=== PATIENT | male | born 1950 | race Caucasian/White ===

== ENCOUNTER → 2020-05-25 | Outpatient (CLI) | payer MEDICARE ==
--- NOTE | 2020-05-25 10:25 | XR ---
EXAMINATION TYPE: XR chest 2V DATE OF EXAM: 05/25/2020 COMPARISON: NONE HISTORY: R06.02 TECHNIQUE: Frontal and lateral views of the chest are obtained. FINDINGS: There is no focal air space opacity, pleural effusion, or pneumothorax seen. The cardiac silhouette size is within normal limits. Suspect coronary artery calcifications may be present The o sseous structures are intact, there is thoracic spondylosis. Right hemidiaphragm mildly elevated. IMPRESSION: No acute cardiopulmonary process. Coronary artery disease. Additional findings above.
== END ==
LOC: RADXRMAIN 09:31
PROVIDERS: ATTEND Physician Assistant
DX: I25.10 Atherosclerotic heart disease of native coronary artery without angina pectoris (principal)
CPT/HCPCS: 71046

== ENCOUNTER 2020-05-28 04:28 | Inpatient (IN) | payer MEDICARE ==
[2020-05-28 05:22] LABS: Basophils # (A) 0.1 k/uL (0-0.2); Basophils % (A) 1 %; Eosinophils # (A) 0.2 k/uL (0-0.7); Eosinophils % (A) 1 %; HCT 50.9 % (39.0-53.0); HGB 17.2 gm/dL (13.0-17.5); Lymphocytes # (A) 2.5 k/uL (1.0-4.8); Lymphocytes % (A) 17 %; MCHC 33.7 g/dL (31.0-37.0); Mean Platelet Volume 7.4; Monocytes % (A) 7 %; Neutrophils # (A) 10.6 k/uL (1.3-7.7); Neutrophils % (A) 73 %; Platelet Count 261 k/uL (150-450); RBC 5.36 m/uL (4.30-5.90); RDW 12.3 % (11.5-15.5); WBC 14.5 k/uL (3.8-10.6)
[2020-05-28 05:51] LABS: Albumin 3.9 g/dL (3.5-5.0); Calcium 9.3 mg/dL (8.4-10.2); Magnesium 2.2 mg/dL (1.6-2.3); Potassium 4.2 mmol/L (3.5-5.1); Total Bilirubin 1.1 mg/dL (0.2-1.3); Total Protein 6.9 g/dL (6.3-8.2)
[2020-05-28 05:57] LABS: INR 1.1 (<1.2); Partial Thromboplastin Time 22.5 sec (22.0-30.0); Prothrombin Time 11.6 sec (9.0-12.0)
--- NOTE | 2020-05-28 06:00 | XR ---
EXAM: XR Chest, 2 Views CLINICAL HISTORY: Difficulty breathing. TECHNIQUE: Frontal and lateral views of the chest. COMPARISON: No relevant prior studies available. FINDINGS: Lungs: Mild infiltration or atelectasis in the left lung base. Pleural space: Unremarkable. No pneumothorax. No pleural fluid. Heart: Unremarkable. No cardiomegaly. Mediastinum: Unremarkable. Bones/joints: Unremarkable. No acute abnormalities. IMPRESSION: Mild infiltration or atelectasis in the left lung base.
[2020-05-28 06:25] LABS: D-Dimer 22.31 mg/L FEU (<0.60)
--- NOTE | 2020-05-28 06:46 | ED ---
SOB HPI - General Chief Complaint: Shortness of Breath Stated Complaint: SOB Time Seen by Provider: 05/28/20 04:52 Source: patient Mode of arrival: wheelchair Limitations: no limitations - History of Present Illness Initial Comments: This patient is a 70-year-old man presenting to be evaluated for shortness of breath. The patient states that his symptoms have been going back probably over a week now. He had been seen by his primary physician for cough and some shortness of breath and had been started on levofloxacin for suspected pneumonia. The patient states that he did so slowly go for a chest x-ray that was read as negative and then his doctor told him he would probably have to have a CAT scan as follow-up. The patient states that as he was short of breath he decided come here for evaluation. The patient currently denying chest pain but states he has had twinges of pain in the past. In addition to these the patient has been having lower leg pains that he thought were muscle spasms. MD Complaint: shortness of breath Onset/Timin -: week(s) Severity: moderate Quality: aching Consistency: constant Improves With: nothing Worsens With: nothing Associated Symptoms: lower extremity pain Treatments Prior to Arrival: none - Related Data Home Medications Medication Instructions Recorded Confirmed lisinopriL [Zestril] 10 mg PO DAILY 05/28/20 05/28/20 Previous Rx's Medication Instructions Recorded Apixaban [Eliquis Starter Pack 0 mg PO DIRECTED 30 Days #1 pack 05/29/20 (for VTE)] Apixaban [Eliquis] 5 mg PO BID #30 tab 05/29/20 Aspirin 81 mg PO DAILY #30 chewable 05/29/20 Allergies Allergy/AdvReac Type Severity Reaction Status Date / Time diclofenac AdvReac DIZZY Verified 05/28/20 07:24 latex AdvReac Rash/Hives Verified 05/28/20 07:24 Review of Systems ROS Statement: Those systems with pertinent positive or pertinent negative responses have been documented in the HPI. ROS Other: All systems not noted in ROS Statement are negative. Constitutional: Denies: fever, chills Respiratory: Reports: cough, dyspnea. Denies: wheezes, hemoptysis Cardiovascular: Reports: chest pain. Denies: palpitations, orthopnea, edema, syncope Gastrointestinal: Denies: abdominal pain, vomiting, diarrhea Genitourinary: Denies: dysuria, hematuria Musculoskeletal: Denies: back pain Skin: Denies: rash Neurological: Denies: headache, weakness, numbness Past Medical History Past Medical History: Hypertension History of Any Multi-Drug Resistant Organisms: None Reported Past Surgical History: Cholecystectomy, Orthopedic Surgery Past Psychological History: No Psychological Hx Reported Smoking Status: Never smoker Past Alcohol Use History: None Reported Past Drug Use History: None Reported General Exam Limitations: no limitations General appearance: alert, in no apparent distress Head exam: Present: atraumatic, normocephalic Eye exam: Present: normal appearance Respiratory exam: Present: normal lung sounds bilaterally. Absent: respiratory distress, wheezes, rales, rhonchi, stridor, accessory muscle use Cardiovascular Exam: Present: regular rate, normal rhythm, normal heart sounds. Absent: systolic murmur, diastolic murmur, rubs, gallop GI/Abdominal exam: Present: soft. Absent: distended, tenderness, guarding, rebound, rigid, mass Extremities exam: Present: normal inspection, normal capillary refill. Absent: pedal edema, calf tenderness Back exam: Present: normal inspection. Absent: CVA tenderness (R), CVA tenderness (L) Neurological exam: Present: alert Skin exam: Present: warm, dry, intact, normal color. Absent: rash Course Vital Signs 05/28/20 05/28/20 05/28/20 04:31 05:09 06:00 Temperature Pulse Rate 94 89 Respiratory 24 22 26 H Rate Blood Pressure 115/72 118/83 O2 Sat by Pulse 94 L 97 Oximetry 05/28/20 05/28/20 05/28/20 07:09 08:00 08:37 Temperature 97.8 F 98.0 F Pulse Rate 87 84 Respiratory 27 H 16 Rate Blood Pressure 125/82 102/70 O2 Sat by Pulse 85 L 97 Oximetry 05/28/20 05/28/20 05/28/20 09:47 11:15 11:48 Temperature 98.0 F 97.5 F L Pulse Rate 84 86 87 Respiratory 18 22 22 Rate Blood Pressure 113/66 107/81 110/80 O2 Sat by Pulse 97 96 96 Oximetry Medical Decision Making - Medical Decision Making This patient is 70-year-old man presenting with shortness of breath and some intermittent discomfort in the chest. The patient's workup does reveal pulmonary embolism with bilateral clots. Discussed the case with vascular on- call and they would like to stand echocardiogram added. Case also discussed with admitting physician. - Lab Data Result diagrams: 05/29/20 02:48 05/29/20 02:48 Lab Results 05/28/20 05/28/20 05/28/20 Range/Units 04:59 04:59 04:59 WBC 14.5 H (3.8-10.6) k/uL RBC 5.36 (4.30-5.90) m/uL Hgb 17.2 (13.0-17.5) gm/dL Hct 50.9 (39.0-53.0) % MCV 95.0 (80.0-100.0) fL MCH 32.0 (25.0-35.0) pg MCHC 33.7 (31.0-37.0) g/dL RDW 12.3 (11.5-15.5) % Plt Count 261 (150-450) k/uL MPV 7.4 Neutrophils % 73 % Lymphocytes % 17 % Monocytes % 7 % Eosinophils % 1 % Basophils % 1 % Neutrophils # 10.6 H (1.3-7.7) k/uL Lymphocytes # 2.5 (1.0-4.8) k/uL Monocytes # 1.0 (0-1.0) k/uL Eosinophils # 0.2 (0-0.7) k/uL Basophils # 0.1 (0-0.2) k/uL PT 11.6 (9.0-12.0) sec INR 1.1 (<1.2) APTT 22.5 (22.0-30.0) sec D-Dimer 22.31 H (<0.60) mg/L FEU Sodium 138 (137-145) mmol/L Potassium 4.2 (3.5-5.1) mmol/L Chloride 102 (98-107) mmol/L Carbon Dioxide 24 (22-30) mmol/L Anion Gap 12 mmol/L BUN 34 H (9-20) mg/dL Creatinine 1.40 H (0.66-1.25) mg/dL Est GFR (CKD-EPI)AfAm 59 (>60 ml/min/1.73 sqM) Est GFR (CKD-EPI)NonAf 51 (>60 ml/min/1.73 sqM) Glucose 156 H (74-99) mg/dL Lactic Ac Sepsis Rflx Plasma Lactic Acid Edmund (0.7-2.0) mmol/L Calcium 9.3 (8.4-10.2) mg/dL Magnesium 2.2 (1.6-2.3) mg/dL Total Bilirubin 1.1 (0.2-1.3) mg/dL AST 85 H (17-59) U/L ALT 155 H (4-49) U/L Alkaline Phosphatase 129 H (38-126) U/L Troponin I (0.000-0.034) ng/mL NT-Pro-B Natriuret Pep pg/mL Total Protein 6.9 (6.3-8.2) g/dL Albumin 3.9 (3.5-5.0) g/dL Coronavirus (PCR) (Not Detectd) 05/28/20 05/28/20 05/28/20 Range/Units 04:59 04:59 04:59 WBC (3.8-10.6) k/uL RBC (4.30-5.90) m/uL Hgb (13.0-17.5) gm/dL Hct (39.0-53.0) % MCV (80.0-100.0) fL MCH (25.0-35.0) pg MCHC (31.0-37.0) g/dL RDW (11.5-15.5) % Plt Count (150-450) k/uL MPV Neutrophils % % Lymphocytes % % Monocytes % % Eosinophils % % Basophils % % Neutrophils # (1.3-7.7) k/uL Lymphocytes # (1.0-4.8) k/uL Monocytes # (0-1.0) k/uL Eosinophils # (0-0.7) k/uL Basophils # (0-0.2) k/uL PT (9.0-12.0) sec INR (<1.2) APTT (22.0-30.0) sec D-Dimer (<0.60) mg/L FEU Sodium (137-145) mmol/L Potassium (3.5-5.1) mmol/L Chloride (98-107) mmol/L Carbon Dioxide (22-30) mmol/L Anion Gap mmol/L BUN (9-20) mg/dL Creatinine (0.66-1.25) mg/dL Est GFR (CKD-EPI)AfAm (>60 ml/min/1.73 sqM) Est GFR (CKD-EPI)NonAf (>60 ml/min/1.73 sqM) Glucose (74-99) mg/dL Lactic Ac Sepsis Rflx Plasma Lactic Acid Edmund 2.3 H* (0.7-2.0) mmol/L Calcium (8.4-10.2) mg/dL Magnesium (1.6-2.3) mg/dL Total Bilirubin (0.2-1.3) mg/dL AST (17-59) U/L ALT (4-49) U/L Alkaline Phosphatase (38-126) U/L Troponin I 0.861 H* (0.000-0.034) ng/mL NT-Pro-B Natriuret Pep 98162 pg/mL Total Protein (6.3-8.2) g/dL Albumin (3.5-5.0) g/dL Coronavirus (PCR) (Not Detectd) 05/28/20 05/28/20 Range/Units 06:44 07:25 WBC (3.8-10.6) k/uL RBC (4.30-5.90) m/uL Hgb (13.0-17.5) gm/dL Hct (39.0-53.0) % MCV (80.0-100.0) fL MCH (25.0-35.0) pg MCHC (31.0-37.0) g/dL RDW (11.5-15.5) % Plt Count (150-450) k/uL MPV Neutrophils % % Lymphocytes % % Monocytes % % Eosinophils % % Basophils % % Neutrophils # (1.3-7.7) k/uL Lymphocytes # (1.0-4.8) k/uL Monocytes # (0-1.0) k/uL Eosinophils # (0-0.7) k/uL Basophils # (0-0.2) k/uL PT (9.0-12.0) sec INR (<1.2) APTT (22.0-30.0) sec D-Dimer (<0.60) mg/L FEU Sodium (137-145) mmol/L Potassium (3.5-5.1) mmol/L Chloride (98-107) mmol/L Carbon Dioxide (22-30) mmol/L Anion Gap mmol/L BUN (9-20) mg/dL Creatinine (0.66-1.25) mg/dL Est GFR (CKD-EPI)AfAm (>60 ml/min/1.73 sqM) Est GFR (CKD-EPI)NonAf (>60 ml/min/1.73 sqM) Glucose (74-99) mg/dL Lactic Ac Sepsis Rflx Y Plasma Lactic Acid Edmund (0.7-2.0) mmol/L Calcium (8.4-10.2) mg/dL Magnesium (1.6-2.3) mg/dL Total Bilirubin (0.2-1.3) mg/dL AST (17-59) U/L ALT (4-49) U/L Alkaline Phosphatase (38-126) U/L Troponin I (0.000-0.034) ng/mL NT-Pro-B Natriuret Pep pg/mL Total Protein (6.3-8.2) g/dL Albumin (3.5-5.0) g/dL Coronavirus (PCR) Not Detected (Not Detectd) - EKG Data -: EKG Interpreted by Me EKG shows normal: sinus rhythm, axis ((), intervals (NY interval 158 ms, QRS duration 102 ms, both normal. QTC 513 ms, prolonged.), QRS complexes (Possible old inferior infarct.), ST-T waves (T inversions in the anterior lateral leads) Rate: normal (Rate 100 BVM) Interpretation: other (EKG suggestive of right heart strain) Critical Care Time Critical Care Time: Yes (30 minutes) Disposition Clinical Impression: Pulmonary embolism Disposition: ADMITTED IP TO THIS HOSP Condition: Serious Is patient prescribed a controlled substance at d/c from ED?: No
[2020-05-28] MEDS ORDERED: HEPARIN SODIUM,PORCINE 5,000 UNIT/ML 1 ML VIAL IV PRN (07:13)
[2020-05-28] MEDS ORDERED: HEPARIN SODIUM,PORCINE 10,000 UNIT/ML 1 ML VIAL IV ONE (07:13)
[2020-05-28] MEDS: HEPARIN SOD,PORK IN 0.45% NACL 25,000 UNIT in 0.45% NACL 1 250ML.BAG IV SCH (07:28)
[2020-05-28] MEDS ORDERED: NITROGLYCERIN SL TABS 0.4 MG TAB SUBLINGUAL PRN (07:30)
--- NOTE | 2020-05-28 07:55 | CT ---
EXAM: CT Angiography Chest With Intravenous Contrast CLINICAL HISTORY: Suspected PE TECHNIQUE: Axial computed tomographic angiography images of the chest with intravenous contrast. CTDI is 16.57 mGy and DLP is 326 mGy-cm. This CT exam was performed using one or more of the following dose reduction techniques: automated exposure control, adjustment of the mA and/or kV according to patient size, and/or use of iterative reconstruction technique. MIP reconstructed images were created and reviewed. COMPARISON: No relevant prior studies available. FINDINGS: Pulmonary arteries: Saddle pulmonary embolus with extensive bilateral pulmonary emboli. Main pulmonary artery measures up to 3.8 cm diameter suggesting pulmonary hypertension. Aorta: Aneurysmal dilatation of the aortic root, measuring up to 4.1 cm in diameter. Mild at this chronic vascular calcifications involving the aortic arch. Lungs: Finding suggestive of developing pulmonary infarct involving the right lower lobe. No mass. Pleural space: Unremarkable. No significant effusion. No pneumothorax. Heart: Heart is at the upper limits of normal with evidence of right heart strain. Pericardial effusion, measuring up to 3 mm in thickness. Bones/joints: Evaluation the osseous structures demonstrate moderate degenerative changes. No acute fracture. No dislocation. Soft tissues: Left axillary lymphadenopathy, measuring up to 1.4 cm in short axis, of unknown significance.. Gallbladder and bile ducts: Status post cholecystectomy. IMPRESSION: 1. Saddle pulmonary embolus with extensive bilateral pulmonary emboli. 2. Heart is at the upper limits of normal with evidence of right heart strain. 3. Main pulmonary artery measures up to 3.8 cm diameter suggesting pulmonary hypertension. 4. Pericardial effusion, measuring up to 3 mm in thickness. 5. Finding suggestive of developing pulmonary infarct involving the right lower lobe. Attention on follow-up is recommended. 6. 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 <MYCVCSECTION> Communications: 05/28/20 07:54 Call Doctor Regarding Pulmonary Embolism, called Dr. Batista on 05/28 07:54 (-05:00)
--- NOTE | 2020-05-28 08:32 | P.GSCN ---
History of Present Illness Consult date: 05/28/20 Reason for Consult: Pulmonary embolism History of present illness: This is a 70-year-old pleasant male patient who presented to the emergency department for evaluation of shortness of breath. Past medical history includes hypertension. He denies any recent surgery, travel, history of clotting disorders or family history of clotting disorders. He states he has been living more of a sedentary lifestyle since Covid pandemic. States he is a nonsmoker, denies any history of alcohol abuse. The patient states that his symptoms and about a week ago. He states the shortness of breath is with exertion. He had some right-sided chest pain which she states has resolved at this point. He had been seen by his primary physician for cough and some shortness of breath and had been started on levofloxacin for suspected pneumonia. He currently denies any shortness of breath or chest pain. He is on 2 L of nasal cannula and saturation is 96%. Today's labs include WBC 14.5, hemoglobin 17.2, hematocrit 50.9, platelets 261. Sodium 138 potassium 4.2, BUN 34, creatinine 1.40, elevated plasma lactic acid at 2.3, glucose 156, INR 1.1, d-dimer 22.31. Elevated troponins 0.861, BNP 19,400. CT angiogram of chest impression that states that a pulmonary embolus with extensive bilateral pulmonary emboli. Heart is at the upper limits of normal with evidence of right heart strain. Main pulmonary artery measures up to 3.8 cm diameter suggesting pulmonary hypertension. Pericardial effusion, measuring up to 3 mm in thickness. Findings suggestive of developing pulmonary infarct involving the right lower lobe. Attention to follow-up is recommended. Aneurysmal dilation of the aortic root, measuring up to 4.1 cm in diameter. Chest x-ray: Mild infiltration or atelectasis in the left lung base Echocardiogram ordered and completed, pending results. Review of Systems Routine point review of system was completed all pertinent positives and negatives as stated in the HPI. Past Medical History Past Medical History: Hypertension History of Any Multi-Drug Resistant Organisms: None Reported Past Surgical History: Cholecystectomy, Orthopedic Surgery Past Psychological History: No Psychological Hx Reported Smoking Status: Never smoker Past Alcohol Use History: None Reported Past Drug Use History: None Reported Medications and Allergies Home Medications Medication Instructions Recorded Confirmed Type Levofloxacin [Levaquin] 500 mg PO DAILY 05/28/20 05/28/20 History lisinopriL [Zestril] 10 mg PO DAILY 05/28/20 05/28/20 History Allergies Allergy/AdvReac Type Severity Reaction Status Date / Time diclofenac AdvReac DIZZY Verified 05/28/20 07:24 latex AdvReac Rash/Hives Verified 05/28/20 07:24 Surgical - Exam Vital Signs Pulse Resp BP Pulse Ox 94 24 115/72 94 L 05/28/20 04:31 05/28/20 04:31 05/28/20 04:31 05/28/20 04:31 General appearance: The patient is alert, oriented, appears in no acute distress. HET: Head is normocephalic and atraumatic. Pupils are equal and reactive. Oropharynx is clear without lesions. Neck: Supple without lymphadenopathy. Trachea midline. Heart: S1 S2. Regular rate and rhythm. Lungs: Clear to auscultation bilaterally Abdomen: Soft, nontender, nondistended. Extremities: Normal skin color and turgor. No cyanosis, rash, ulceration, clubbing, or edema. Radial pulses 2/4 bilaterally Neurological: No focal deficits. Strength and sensation are grossly intact. Results - Labs 05/28/20 04:59 05/28/20 04:59 Abnormal Lab Results - Last 24 Hours (Table) 05/28/20 05/28/20 05/28/20 Range/Units 04:59 04:59 04:59 WBC 14.5 H (3.8-10.6) k/uL Neutrophils # 10.6 H (1.3-7.7) k/uL D-Dimer 22.31 H (<0.60) mg/L FEU BUN 34 H (9-20) mg/dL Creatinine 1.40 H (0.66-1.25) mg/dL Glucose 156 H (74-99) mg/dL Plasma Lactic Acid Edmund (0.7-2.0) mmol/L AST 85 H (17-59) U/L ALT 155 H (4-49) U/L Alkaline Phosphatase 129 H (38-126) U/L Troponin I (0.000-0.034) ng/mL 05/28/20 05/28/20 Range/Units 04:59 04:59 WBC (3.8-10.6) k/uL Neutrophils # (1.3-7.7) k/uL D-Dimer (<0.60) mg/L FEU BUN (9-20) mg/dL Creatinine (0.66-1.25) mg/dL Glucose (74-99) mg/dL Plasma Lactic Acid Edmund 2.3 H* (0.7-2.0) mmol/L AST (17-59) U/L ALT (4-49) U/L Alkaline Phosphatase (38-126) U/L Troponin I 0.861 H* (0.000-0.034) ng/mL Diabetes panel 05/28/20 Range/Units 04:59 Sodium 138 (137-145) mmol/L Potassium 4.2 (3.5-5.1) mmol/L Chloride 102 (98-107) mmol/L Carbon Dioxide 24 (22-30) mmol/L BUN 34 H (9-20) mg/dL Creatinine 1.40 H (0.66-1.25) mg/dL Glucose 156 H (74-99) mg/dL Calcium 9.3 (8.4-10.2) mg/dL AST 85 H (17-59) U/L ALT 155 H (4-49) U/L Alkaline Phosphatase 129 H (38-126) U/L Total Protein 6.9 (6.3-8.2) g/dL Albumin 3.9 (3.5-5.0) g/dL Calcium panel 05/28/20 Range/Units 04:59 Calcium 9.3 (8.4-10.2) mg/dL Albumin 3.9 (3.5-5.0) g/dL Pituitary panel 05/28/20 Range/Units 04:59 Sodium 138 (137-145) mmol/L Potassium 4.2 (3.5-5.1) mmol/L Chloride 102 (98-107) mmol/L Carbon Dioxide 24 (22-30) mmol/L BUN 34 H (9-20) mg/dL Creatinine 1.40 H (0.66-1.25) mg/dL Glucose 156 H (74-99) mg/dL Calcium 9.3 (8.4-10.2) mg/dL Adrenal panel 05/28/20 Range/Units 04:59 Sodium 138 (137-145) mmol/L Potassium 4.2 (3.5-5.1) mmol/L Chloride 102 (98-107) mmol/L Carbon Dioxide 24 (22-30) mmol/L BUN 34 H (9-20) mg/dL Creatinine 1.40 H (0.66-1.25) mg/dL Glucose 156 H (74-99) mg/dL Calcium 9.3 (8.4-10.2) mg/dL Total Bilirubin 1.1 (0.2-1.3) mg/dL AST 85 H (17-59) U/L ALT 155 H (4-49) U/L Alkaline Phosphatase 129 H (38-126) U/L Total Protein 6.9 (6.3-8.2) g/dL Albumin 3.9 (3.5-5.0) g/dL - Imaging Comments: CT angiogram of chest impression that states that a pulmonary embolus with extensive bilateral pulmonary emboli. Heart is at the upper limits of normal with evidence of right heart strain. Main pulmonary artery measures up to 3.8 cm diameter suggesting pulmonary hypertension. Pericardial effusion, measuring up to 3 mm in thickness. Findings suggestive of developing pulmonary infarct involving the right lower lobe. Attention to follow-up is recommended. Aneurysmal dilation of the aortic root, measuring up to 4.1 cm in diameter. Chest x-ray: Impression mild infiltration or atelectasis in the left lung base Echocardiogram: There is moderate concentric left ventricular hypertrophy, EF between 55-60%, right ventricle severely enlarged, right ventricular systolic function is moderately impaired, left atrial size is normal, mild aortic valve sclerosis, mild aortic regurgitation, can't exclude possible bicuspid AOV, mild mitral regurgitation, mild mitral valve prolapse, mild tricuspid regurgitation, moderate pulmonary hypertension, trivial pericardial effusion is present Assessment and Plan Assessment: 1. Saddle pulmonary embolus with extensive bilateral pulmonary emboli, evidence of right heart strain per CTA and echocardiogram 2. Shortness of breath 3. Hypertension Plan: Supportive care Continue IV heparin Echocardiogram ordered Discussed echocardiogram results with cardiology, they state there is evidence of right heart strain Will proceed with pulmonary thrombolysis with EKOS today with Dr. Galvan Thank you for this consultation and allowing us to take part in the plan of care of your patient during his hospital stay The impression and plan of care has been dictated as directed. Dr. Galvan I performed a history and examination of this patient, discussed the same with the dictator. I agree with the dictator's note ,documented as a scribe. Any additional findings or plans will be noted.
[2020-05-28] MEDS: lisinopriL 10 MG TAB PO SCH (08:38)
--- NOTE | 2020-05-28 10:31 | ECHOF ---
Referral Reason:Pulmonary embolism MEASUREMENTS -------- HEIGHT: 165.1 cm WEIGHT: 82.1 kg BP: RVIDd: 4.4 cm (< 3.3) IVSd: 1.4 cm (0.6 - 1.1) LVIDd: 3.3 cm (3.9 - 5.3) LVPWd: 1.3 cm (0.6 - 1.1) IVSs: 1.6 cm LVIDs: 1.6 cm LVPWs: 1.8 cm Ao Diam: 3.1 cm (2.0 - 3.7) AV Cusp: 1.7 cm (1.5 - 2.6) LA Diam: 2.3 cm (2.7 - 3.8) MV EXCURSION: 9.371 mm (> 18.000) MV EF SLOPE: 42 mm/s (70 - 150) EPSS: 1.3 cm MV E Ken: 0.36 m/s MV DecT: 170 ms MV A Ken: 0.70 m/s MV E/A Ratio: 0.52 AR PHT: 494 ms RAP: 5.00 mmHg RVSP: 49.08 mmHg FINDINGS -------- Sinus rhythm. This was a technically adequate study. The left ventricular size is normal. There is moderate concentric left ventricular hypertrophy. O verall left ventricular systolic function is normal with, an EF between 55 - 60 %. The right ventricle is severely enlarged. The right ventricular systolic function is moderately imp aired. The left atrial size is normal. The right atrial size is normal. There is mild aortic valve sclerosis. There is mild aortic regurgitation. Can't exclude possible Bicuspid Aov. Mild mitral regurgitation is present. There is mild mitral valve prolapse. The tricuspid valve appears structurally normal. Mild tricuspid regurgitation present. There is m oderate pulmonary hypertension. The right ventricular systolic pressure, as measured by Doppler, is 49.08mmHg. There is no pulmonic regurgitation present. The aortic root size is normal. There is a trivial pericardial effusion present. CONCLUSIONS -------- 1. There is moderate concentric left ventricular hypertrophy. 2. Overall left ventricular systolic function is normal with, an EF between 55 - 60 %. 3. The right ventricle is severely enlarged. 4. The right ventricular systolic function is moderately impaired. 5. The left atrial size is normal. 6. There is mild aortic valve sclerosis. 7. There is mild aortic regurgitation. 8. Can't exclude possible Bicuspid Aov. 9. Mild mitral regurgitation is present. 10. There is mild mitral valve prolapse. 11. Mild tricuspid regurgitation present. 12. There is moderate pulmonary hypertension. 13. There is a trivial pericardial effusion present. DOUGHNUT FRYER: Enriqueta Mena RDCS
[2020-05-28] MEDS ORDERED: LIDOCAINE 1% INJ 10MG/ML (20 ML MDV) SQ ONE (12:56)
[2020-05-28] MEDS ORDERED: MORPHINE SULFATE 4 MG/ML SYRINGE IV ONE (12:58)
[2020-05-28] MEDS ORDERED: MIDAZOLAM 2 MG/2 ML VIAL IV ONE (12:58)
[2020-05-28] MEDS ORDERED: IV FLUID CONTINUATION 1,000 ML IV ONE (12:59)
[2020-05-28] MEDS ORDERED: ALTEPLASE 10 MG in SODIUM CHLORIDE 0.9% 100 ML IV ONE ×5 (13:07→13:53)
[2020-05-28] MEDS ORDERED: LORazepam 2 MG/ML INJ IV PRN (13:49)
[2020-05-28] MEDS ORDERED: ONDANSETRON 4 MG/2 ML VIAL IVP PRN (13:49)
[2020-05-28] MEDS ORDERED: ALTEPLASE 2 MG VIAL (CATHFLO) IV ONE ×2 (14:00)
[2020-05-28] MEDS ORDERED: SODIUM CHLORIDE 0.9% 1,000 ML IV SCH ×4 (14:00→15:00)
[2020-05-28] MEDS ORDERED: HEPARIN SOD,PORK IN 0.45% NACL 25,000 UNIT in 0.45% NACL 1 250ML.BAG IV SCH ×2 (14:00)
[2020-05-28] MEDS ORDERED: ALTEPLASE 5 MG in SODIUM CHLORIDE 0.9% 50 ML IV ONE ×2 (14:22→14:30)
[2020-05-28 14:42] LABS: Glucose,Whole Blood 120 mg/dL (75-99)
--- NOTE | 2020-05-28 14:43 | IR ---
Fluoroscopy HISTORY: Pain 18.9 minutes fluoroscopy time supplied to the referring clinician. 17 intraoperative C-arm images do cument the procedure. See dictated report from vascular surgery.
--- NOTE | 2020-05-28 15:33 | P.OP ---
Date of Procedure: 05/28/20 Preoperative Diagnosis: Submassive bilateral pulmonary emboli with evidence of right heart strain. Postoperative Diagnosis: Same. Procedure(s) Performed: #1: Ultrasound-guided cannulation of right common femoral vein 2. #2: Placement of pulmonary artery catheter for infusion of the TPA for the purpose of pulmonary artery thrombus lysis bilaterally. Implants: None. Anesthesia: local (With moderate conscious sedation.) Surgeon: Nick Galvan Estimated Blood Loss (ml): 10 Urine output (ml): 0 Pathology: none sent Condition: stable Disposition: ICU (For TPA infusion.) Indications for Procedure: Patient is a 70-year-old male who presented earlier today with a chief complaint of acute onset shortness of breath. During workup a CT pulmonary angiogram was performed which demonstrated submassive from pulmonary emboli on a bilateral basis. Laboratory values demonstrated elevated troponins. Echocardiogram demonstrated evidence of right heart strain. Because of these findings the patient was offered a palmar thrombo-lysis. The procedure, risk and benefits were discussed with the patient. Patient wished to proceed Description of Procedure: Patient was brought to special procedure suite. Both groins were sterilely prepped and draped in usual manner. 1% Xylocaine was utilized for local anesthesia tissues overlying the right femoral vein after's location was identified with the use of ultrasound. Through this anesthetized area and with the aid of ultrasound a multipurpose needle was utilized to cannulate the vein. Once cannulated Softip guidewire is advanced the vein. The needle was withdrawn and a 6-Argentine sheath was placed. This was performed a second time in a similar manner. Through one of the 2 sheaths a angled Glidewire and guidewire combinations were advanced under fluoroscopic control. The guidewire is advanced into the right ventricle into the pulmonary outflow tract. The catheter was advanced over the guidewire in the guidewire and catheter combination were advanced into the main pulmonary artery. The guidewire was withdrawn and a stiff guidewire is advanced through the catheter. The catheter was then withdrawn. This was followed by placement of an Ekos catheter in the left main pulmonary artery. 2 mg of TPA were directly instilled after the vibrating core was advanced. The sheath was secured to skin with silk suture. A similar procedure was performed for placement of an Ekos catheter in the right pulmonary artery. A continuous infusion of 1 mg of TPA per hour was initiated via each catheter. Additionally 250 units of heparin per hour were instilled through the side port of each sheath, thus a total 500 units of heparin per hour was to be infused. Appropriate dressings were applied over the catheters. Patient tolerated procedure well and was taken the intensive care unit in satisfactory and stable condition. Plan is for 10 hours of infusion of tPA afterwards to TPAs to be discontinued in the pulmonary artery catheters are to be removed. Thereafter the patient is to be converted to full strength heparin therapy with eventual conversion to oral anticoagulation.
[2020-05-28 20:59] LABS: HCT 41.6 % (39.0-53.0); MCH 32.7 pg (25.0-35.0); MCV 95.9 fL (80.0-100.0); Mean Platelet Volume 7.5; Platelet Count 193 k/uL (150-450); RBC 4.34 m/uL (4.30-5.90); RDW 12.3 % (11.5-15.5); WBC 11.6 k/uL (3.8-10.6)
[2020-05-28 21:04] LABS: HGB 14.2 gm/dL (13.0-17.5)
[2020-05-29] MEDS: HEPARIN SOD,PORK IN 0.45% NACL 25,000 UNIT in 0.45% NACL 1 250ML.BAG IV SCH (00:01)
--- NOTE | 2020-05-29 00:10 | P.HPIM ---
History of Present Illness H&P Date: 05/28/20 Chief Complaint: Shortness of breath. Patient is a 70-year-old male with a known history of hypertension presents to ER with complaints of shortness of breath. Patient has been having worsening on and off shortness of breath for the past 1 week. Patient was seen by his [facility] physician and was started levofloxacin for possible pneumonia. Patient is still having shortness of breath and decided to come to ER. Currently patient denies cough or sputum complaints of chest pain. Patient states that he is also having lower leg pain which he thought was due to muscle spasms. No complaints of fever or chills. Denies any cough or sputum production. No headache or dizziness or lightheadedness. Chest x-ray showed mild infiltration or atelectasis in the left lung base. Patient did have elevated D-dimer level 22.31 and WBC count 14.5 and lactic acid 2.3, BUN 34 and creatinine 1.4 proBNP 08769. Coronavirus PCR not detected Troponin 0 0.861, 0.[address] angiogram of the chest was done which showed saddle pulmonary embolus with extensive bilateral pulmonary emboli. Heart is at upper limits of normal with evidence of right heart strain. Pericardial effusion up to 3 mm in thickness Findings suggestive of developing pulmonary infarct involving the right lower lobe. 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 Patient was seen by vascular surgery and is planning for thrombolysis today. Review of Systems Constitutional: Patient denies any fever or chills . No generalized weakness or weight loss. Abdomen: Patient denied nausea vomiting and diarrhea and abdominal pain. Cardiovascular: Patient does have shortness of breath and on and off chest pain. no palpitations. Respiratory: patient denied any cough or sputum production. No shortness of breath Neurologic: Patient denied any numbness or tingling headache. Musculoskeletal: Patient denies any complaints of joint swelling or deformity. Skin: Negative Psychiatric: Negative Endocrine: No heat or cold intolerance. No recent weight gain. Genitourinary: No dysuria or hematuria. All other 14 point ROS negative except the above Past Medical History Past Medical History: Hypertension History of Any Multi-Drug Resistant Organisms: None Reported Past Surgical History: Cholecystectomy, Orthopedic Surgery Past Psychological History: No Psychological Hx Reported Smoking Status: Never smoker Past Alcohol Use History: None Reported Past Drug Use History: None Reported Medications and Allergies Home Medications Medication Instructions Recorded Confirmed Type Levofloxacin [Levaquin] 500 mg PO DAILY 05/28/20 05/28/20 History lisinopriL [Zestril] 10 mg PO DAILY 05/28/20 05/28/20 History Allergies Allergy/AdvReac Type Severity Reaction Status Date / Time diclofenac AdvReac DIZZY Verified 05/28/20 07:24 latex AdvReac Rash/Hives Verified 05/28/20 07:24 Physical Exam Vitals: Vital Signs Temp Pulse Resp BP Pulse Ox 05/28/20 09:47 98.0 F 84 18 113/66 97 05/28/20 08:37 98.0 F 84 16 102/70 97 05/28/20 07:09 97.8 F 05/28/20 06:00 89 26 H 118/83 97 05/28/20 05:09 22 05/28/20 04:31 94 24 115/72 94 L Intake and Output 05/27/20 05/28/20 05/28/20 22:59 06:59 14:59 Other: Weight 82.1 kg PHYSICAL EXAMINATION: Patient is lying in the bed comfortably, no acute distress, awake alert and oriented.. HEENT: Normocephalic. Neck is supple. Pupils reactive. Nostrils clear. Oral cavity is moist. Ears reveal no drainage. Neck reveals no JVD, carotid bruits, or thyromegaly. CHEST EXAMINATION: Trachea is central. Symmetrical expansion. Lung mcdowell clear to auscultation and percussion. CARDIAC: Normal S1, S2 with no gallops. No murmurs ABDOMEN: Soft. Bowel sounds normal. No organomegaly. No abdominal bruits. Extremities: reveal no edema. No clubbing or cyanosis Neurologically awake, alert, oriented x3 with well-coordinated movements. No focal deficits noted Skin: No rash or skin lesions. Psychiatric: Coperative. Nonsuicidal Musculoskeletal: No joint swelling or deformity. Normal range of motion. Results CBC & Chem 7: 05/28/20 19:53 05/28/20 04:59 Labs: Abnormal Lab Results - Last 24 Hours (Table) 05/28/20 05/28/20 05/28/20 Range/Units 04:59 04:59 04:59 WBC 14.5 H (3.8-10.6) k/uL Neutrophils # 10.6 H (1.3-7.7) k/uL D-Dimer 22.31 H (<0.60) mg/L FEU BUN 34 H (9-20) mg/dL Creatinine 1.40 H (0.66-1.25) mg/dL Glucose 156 H (74-99) mg/dL Plasma Lactic Acid Edmund (0.7-2.0) mmol/L AST 85 H (17-59) U/L ALT 155 H (4-49) U/L Alkaline Phosphatase 129 H (38-126) U/L Troponin I (0.000-0.034) ng/mL 05/28/20 05/28/20 05/28/20 Range/Units 04:59 04:59 07:47 WBC (3.8-10.6) k/uL Neutrophils # (1.3-7.7) k/uL D-Dimer (<0.60) mg/L FEU BUN (9-20) mg/dL Creatinine (0.66-1.25) mg/dL Glucose (74-99) mg/dL Plasma Lactic Acid Edmund 2.3 H* (0.7-2.0) mmol/L AST (17-59) U/L ALT (4-49) U/L Alkaline Phosphatase (38-126) U/L Troponin I 0.861 H* 0.729 H* (0.000-0.034) ng/mL Assessment and Plan Assessment: Shortness of breath secondary to saddle pulmonary embolus with extensive bilateral pulmonary emboli with right heart strain Pulmonary hypertension 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 Hypertension Lactic acidosis 2.3 Acute kidney injury with creatinine 1.4 Elevated D-dimer level Elevated troponin level secondary to demand mismatch and right heart strain Elevated BNP level. Plan: Patient will be continued on IV heparin and 2D echocardiogram was ordered which showed evidence of right heart strain. Patient was seen by vascular surgery and is being taken to pulmonary thrombolysis with EKOS by Dr. Castro today. Lower extremity duplex scan will be ordered. Continue with the current management and prognosis guarded at this time. Time with Patient: Greater than 30
[2020-05-29 01:55] LABS: Appearance,Urine Clear (Clear); Bilirubin,Urine Negative (Negative); Blood,Urine Negative (Negative); Color,Urine Yellow; Glucose,Urine (UA) Negative (Negative); Ketones,Urine Negative (Negative); Leukocyte Esterase,Urine Negative (Negative); Mucus,Urine Rare /hpf; Nitrite,Urine Negative (Negative); PH, Urine 5.5 (5.0-8.0); Protein,Urine 1+ (Negative); RBC,Urine 1 /hpf (0-5); Squamous Epithelial Cell,Urine <1 /hpf (0-4); WBC,Urine <1 /hpf (0-5)
[2020-05-29] MEDS: HYDROcodone/APAP 5-325MG 1 EACH TAB PO PRN ×2 (02:28→06:31)
[2020-05-29 03:14] LABS: Basophils # (A) 0.1 k/uL (0-0.2); Basophils % (A) 1 %; Eosinophils # (A) 0.2 k/uL (0-0.7); Eosinophils % (A) 2 %; HCT 41.4 % (39.0-53.0); HGB 13.6 gm/dL (13.0-17.5); Lymphocytes # (A) 1.8 k/uL (1.0-4.8); Lymphocytes % (A) 17 %; MCH 31.4 pg (25.0-35.0); MCHC 32.8 g/dL (31.0-37.0); MCV 95.8 fL (80.0-100.0); Mean Platelet Volume 7.3; Monocytes # (A) 0.8 k/uL (0-1.0); Monocytes % (A) 7 %; Neutrophils # (A) 7.5 k/uL (1.3-7.7); Neutrophils % (A) 72 %; Platelet Count 165 k/uL (150-450); RBC 4.33 m/uL (4.30-5.90); RDW 12.8 % (11.5-15.5); WBC 10.4 k/uL (3.8-10.6)
[2020-05-29 03:17] LABS: African American GFR (CKD) >90 (>60 ml/min/1.73 sqM); Anion Gap 4 mmol/L; Blood Urea Nitrogen 25 mg/dL (9-20); Calcium 7.7 mg/dL (8.4-10.2); Carbon Dioxide 22 mmol/L (22-30); Chloride 109 mmol/L (98-107); Glucose 131 mg/dL (74-99); Non-African American GFR(CKD) 88 (>60 ml/min/1.73 sqM); Sodium 135 mmol/L (137-145)
--- NOTE | 2020-05-29 08:08 | P.PN ---
Subjective Progress Note Date: 05/29/20 Patient doing well, no issues. Breathing much better. NO issues overnight, did cough up a small amount of bloody phlegm this morning. No breathing issues otherwise. Tolerating diet. Groin clean and dry no hematoma. EKOS catheters removed. Remove venous sheaths, bed rest for 2 hours following. Initiate OAC this am rather than restarting heparin Incraese activity today, may be DC home from my standpoint later today if outpatient ECHO able to be set up for early next week. F/U Dr Galvan 2 weeks. Objective - Vital Signs Vital signs: Vital Signs Temp 97.5 F L 05/29/20 08:00 Pulse 69 05/29/20 08:00 Resp 14 05/29/20 08:00 BP 129/83 05/29/20 08:00 Pulse Ox 93 L 05/29/20 08:00 Intake & Output 05/28/20 05/29/20 05/29/20 18:59 06:59 18:59 Intake Total 800 2298.321 160 Output Total 850 300 Balance 800 1448.321 -140 Weight 82.1 kg 85.2 kg Intake: IV 320 1640 160 0.9 NS 40 240 20 0.9 drug port 35mL/hrx2 560 70 Sodium Chloride 0.9% 1, 140 420 35 000 ml @ 35 mls/hr IV . Q24H MELVINA Rx#:[id number] Sodium Chloride 0.9% 1, 140 420 35 000 ml @ 35 mls/hr IV . Q24H MELVINA Rx#:[id number] Intake, IV Titration 178.321 Amount Heparin Sod,Pork in 0.45% 178.321 NaCl 25,000 unit In 0.45 % NaCl 1 250ml.bag @ 18 UNITS/KG/HR 14.778 mls/hr IV .[id number] MELVINA Rx#: [id number] Oral 480 480 Output: Urine 850 300 Other: Voiding Method Urinal - Labs CBC & Chem 7: 05/29/20 02:48 05/29/20 02:48 Labs: Abnormal Lab Results - Last 24 Hours (Table) 05/28/20 05/28/20 05/28/20 Range/Units 07:47 10:41 14:10 WBC (3.8-10.6) k/uL APTT 42.0 H (22.0-30.0) sec Fibrinogen (200-500) mg/dL Sodium (137-145) mmol/L Chloride (98-107) mmol/L BUN (9-20) mg/dL Glucose (74-99) mg/dL POC Glucose (mg/dL) (75-99) mg/dL Calcium (8.4-10.2) mg/dL Troponin I 0.729 H* 0.553 H* (0.000-0.034) ng/mL Ur Specific [place] (1.001-1.035) Urine Protein (Negative) Urine Mucus (None) /hpf 05/28/20 05/28/20 05/28/20 Range/Units 14:10 14:36 19:53 WBC (3.8-10.6) k/uL APTT (22.0-30.0) sec Fibrinogen 598 H 578 H (200-500) mg/dL Sodium (137-145) mmol/L Chloride (98-107) mmol/L BUN (9-20) mg/dL Glucose (74-99) mg/dL POC Glucose (mg/dL) 120 H (75-99) mg/dL Calcium (8.4-10.2) mg/dL Troponin I (0.000-0.034) ng/mL Ur Specific [place] (1.001-1.035) Urine Protein (Negative) Urine Mucus (None) /hpf 05/28/20 05/29/20 05/29/20 Range/Units 19:53 01:18 02:48 WBC 11.6 H (3.8-10.6) k/uL APTT (22.0-30.0) sec Fibrinogen (200-500) mg/dL Sodium 135 L (137-145) mmol/L Chloride 109 H (98-107) mmol/L BUN 25 H (9-20) mg/dL Glucose 131 H (74-99) mg/dL POC Glucose (mg/dL) (75-99) mg/dL Calcium 7.7 L (8.4-10.2) mg/dL Troponin I (0.000-0.034) ng/mL Ur Specific [place] 1.050 H (1.001-1.035) Urine Protein 1+ H (Negative) Urine Mucus Rare H (None) /hpf
[2020-05-29] MEDS ORDERED: ASPIRIN 325 MG TAB PO SCH (09:00)
--- NOTE | 2020-05-29 09:39 | US ---
EXAMINATION TYPE: US venous doppler duplex LE DATE OF EXAM: 05/29/2020 9:05 AM COMPARISON: NONE CLINICAL HISTORY: Pulmonary embolism. Right groin deferred for venous assessment due to sheath presen t here and patient is unable to externally rotate right leg per patient's RN. SIDE PERFORMED: Bilateral TECHNIQUE: The lower extremity deep venous system is examined utilizing real time linear array sonog donya with graded compression, doppler sonography and color-flow sonography. VESSELS IMAGED: Common Femoral Vein Deep Femoral Vein Greater Saphenous Vein * Femoral Vein Popliteal Vein Small Saphenous Vein * Proximal Calf Veins (* superficial vessels) Right Leg: Positive for non occluding DVT Right Femoral Vein mid and distally, Right Popliteal Vein and one of 2 upper calf veins (non compressible at Popliteal Vein and is limited for evaluation here as probe access is reduced here with no external leg rotation allowed.) Left Leg: Thick blood is noted (Rouleaux Effect) at Left CFV, upper Femoral Vein, Deep Femoral Vein, and distal Popliteal Vein, but all deep veins are compressible.Wall echoes are noted at valves in Lef t Femoral Vein and Popliteal Vein distally and may be suggestive of non occluding DVT. IMPRESSION: Positive for nonocclusive right lower extremity DVT, both supra and infrapopliteal as de scribed above. Possible nonocclusive left lower extremity DVT as described above.
[2020-05-29] MEDS ORDERED: ATROPINE SULFATE 0.1 MG/ML 10ML SYRINGE ONE (10:34)
[2020-05-29] MEDS: lisinopriL 10 MG TAB PO SCH (11:17)
--- NOTE | 2020-05-29 11:19 | P.CRDCN ---
History of Present Illness Consult date: 05/29/20 Requesting physician: Morenita Andrade Reason for Consult (text): Right heart strain History of present illness: This apartment 70-year-old gentleman with a past medical history of hypertension. He recently injured his ankles which has limited his physical mobility. He presented with complaints of dyspnea on exertion and right-sided chest discomfort with breathing. The symptoms have been going on for about a week. She been following with his primary care physician who provided him with some antibiotics for suspected pneumonia as well as some pain medications for his ankle and advised him to also take for his chest discomfort. D-dimer was elevated as well as troponins. CT angio of the chest found patient to have extensive bilateral pulmonary emboli and evidence of right heart strain with aneurysmal dilation of the aortic root measuring up to 4.1 cm in diameter and findings suggestive of developing pulmonary infarct involving the right lower lobe. Chest x-ray showed mild infiltrate or atelectasis of the left lung base. Patient was seen by vascular surgery and underwent placement of pulmonary artery catheter for infusion of TPA. He was admitted to the ICU. Echocardiogram showed normal LV systolic function with an ejection fraction between 55-60% and evidence of right heart strain with severely enlarged RV with moderately impaired RV systolic function, mild aortic regurgitation, cannot exclude possible bicuspid aortic valve, mild MR, mild MVP, mild TR and moderate pulmonary hypertension with an RVSP of 49 mmHg. We were consulted to see the patient in regards to right heart strain and need for follow-up. On examination patient is resting comfortably in bed. He denies any significant shortness of breath this time. He denies any chest discomfort. Patient underwent venous duplex of the lateral lower extremities which showed non-occluding DVT of the right femoral vein mid and distally, right popliteal vein and one of 2 upper calf veins and suggestive of nonoccluding DVT in the left leg. Patient is hoping for discharge home today he is being discharged home on Eliquis. Past Medical History Past Medical History: Hypertension History of Any Multi-Drug Resistant Organisms: None Reported Past Surgical History: Cholecystectomy, Orthopedic Surgery Additional Past Surgical History / Comment(s): Cataracts surgery Past Psychological History: No Psychological Hx Reported Smoking Status: Never smoker Past Alcohol Use History: None Reported Past Drug Use History: None Reported Medications and Allergies Home Medications Medication Instructions Recorded Confirmed Type Levofloxacin [Levaquin] 500 mg PO DAILY 05/28/20 05/28/20 History lisinopriL [Zestril] 10 mg PO DAILY 05/28/20 05/28/20 History Apixaban [Eliquis Starter Pack 0 mg PO DIRECTED 30 Days #1 pack 05/29/20 Rx (for VTE)] Apixaban [Eliquis] 5 mg PO BID #30 tab 05/29/20 Rx Allergies Allergy/AdvReac Type Severity Reaction Status Date / Time diclofenac AdvReac DIZZY Verified 05/28/20 07:24 latex AdvReac Rash/Hives Verified 05/28/20 07:24 Physical Exam Vitals: Vital Signs Temp Pulse Pulse Resp BP BP Pulse Ox 05/29/20 10:00 67 14 123/84 94 L 05/29/20 09:00 69 16 138/91 96 05/29/20 08:00 97.5 F L 69 14 129/83 93 L 05/29/20 07:00 74 22 128/82 94 L 05/29/20 06:00 71 17 127/82 96 05/29/20 05:00 72 10 L 124/79 91 L 05/29/20 04:00 97.7 F 72 20 118/82 92 L 05/29/20 03:00 76 22 119/76 93 L 05/29/20 02:00 80 25 H 129/84 94 L 05/29/20 01:00 82 32 H 133/80 95 05/29/20 00:00 98.1 F 77 29 H 111/85 93 L 05/28/20 23:00 80 28 H 119/65 94 L 05/28/20 22:02 82 30 H 121/78 95 05/28/20 22:00 84 19 110/72 96 05/28/20 21:00 82 27 H 119/77 94 L 05/28/20 20:00 97.5 F L 82 30 H 118/77 94 L 05/28/20 19:30 84 28 H 114/76 95 05/28/20 19:00 87 28 H 125/85 94 L 05/28/20 18:30 87 50 H 124/79 96 05/28/20 18:00 89 32 H 108/70 95 05/28/20 17:30 85 19 128/91 95 05/28/20 17:00 85 22 117/71 93 L 05/28/20 16:30 83 26 H 102/78 94 L 05/28/20 16:00 97.9 F 83 21 112/72 93 L 05/28/20 15:30 84 19 121/77 93 L 05/28/20 15:00 96.4 F L 86 14 122/77 93 L 05/28/20 11:48 87 22 110/80 96 05/28/20 11:15 97.5 F L 86 22 107/81 96 Intake and Output 05/28/20 05/29/20 05/29/20 22:59 06:59 14:59 Intake Total 7118.505 8661 360 Output Total 350 500 300 Balance 0526.065 7034 60 Intake: IV 680 1280 360 0.9 NS 120 160 80 0.9 drug port 35mL/hrx2 560 140 Sodium Chloride 0.9% 1, 280 280 70 000 ml @ 35 mls/hr IV . Q24H [facility] Rx#:[id number] Sodium Chloride 0.9% 1, 280 280 70 000 ml @ 35 mls/hr IV . Q24H [facility] Rx#:[id number] Intake, IV Titration 178.321 Amount Heparin Sod,Pork in 0.45% 178.321 NaCl 25,000 unit In 0.45 % NaCl 1 250ml.bag @ 18 UNITS/KG/HR 14.778 mls/hr IV .[id number] [facility]INA Rx#: [id number] Oral 720 240 Output: Urine 350 500 300 Other: Voiding Method Urinal Urinal # Voids 0 Weight 85.2 kg PHYSICAL EXAMINATION: This is a 70-year-old gentleman in no apparent distress at the time of my examination. VITAL SIGNS: Blood pressure 129/76, heart rate 71, respirations 16, temp 97.5. Patient is 94% on 2 L via nasal cannula. HEENT: Head is atraumatic, normocephalic. Pupils are equal, round. Sclerae anic teric. Conjunctivae are clear. Mucous membranes of the mouth are moist. Neck is supple. There is no elevated jugular venous pressure. No carotid bruit is heard. CHEST EXAMINATION: Clear to auscultation anteriorly. No wheezes rales or rhonchi. Respirations even and nonlabored. HEART EXAMINATION: Heart regular, positive S1 and S2. No S3. No S4. Holosystolic murmur at the apex. ABDOMEN: Soft, nontender. Bowel sounds are heard. No organomegaly noted. EXTREMITIES:[ 2+ peripheral pulses with evidence of trace peripheral edema and no calf tenderness noted]. NEUROLOGIC EXAMINATION: Patient is awake, alert and oriented x3. Results 05/29/20 02:48 05/29/20 02:48 Cardiac Enzymes 05/28/20 Range/Units 10:41 Troponin I 0.553 H* (0.000-0.034) ng/mL Coagulation 05/28/20 05/28/20 05/29/20 Range/Units 14:10 19:53 09:20 APTT 42.0 H 22.0 26.0 (22.0-30.0) sec CBC 05/28/20 05/29/20 Range/Units 19:53 02:48 WBC 11.6 H 10.4 (3.8-10.6) k/uL RBC 4.34 4.33 (4.30-5.90) m/uL Hgb 14.2 D 13.6 (13.0-17.5) gm/dL Hct 41.6 41.4 (39.0-53.0) % Plt Count 193 165 (150-450) k/uL Comprehensive Metabolic Panel 05/29/20 Range/Units 02:48 Sodium 135 L (137-145) mmol/L Potassium 4.0 (3.5-5.1) mmol/L Chloride 109 H (98-107) mmol/L Carbon Dioxide 22 (22-30) mmol/L BUN 25 H (9-20) mg/dL Creatinine 0.87 (0.66-1.25) mg/dL Glucose 131 H (74-99) mg/dL Calcium 7.7 L (8.4-10.2) mg/dL Current Medications Generic Name Dose Route Start Last Admin Trade Name Freq PRN Reason Stop Dose Admin Hydrocodone Bitart/Acetaminophen 1 each 05/28/20 13:49 05/29/20 06:31 Hydrocodone/Apap 5-325mg 1 Each Tab PO 1 each Q4HR PRN Administration Pain Scale 4 - 6 Aspirin 325 mg 05/29/20 09:00 Aspirin 325 Mg Tab PO DAILY MELVINA Heparin Sodium (Porcine) 0 unit 05/28/20 07:13 Heparin Sodium,Porcine 5,000 Unit/Ml 1 Ml Vial IV PER PROTOCOL PRN Low PTT Protocol Heparin Sodium/Sodium Chloride 250 mls @ 2.5 mls/hr 05/28/20 14:00 05/28/20 14:18 25,000 unit/ Sodium Chloride IV 0 mls .Q24H MELVINA Administration Heparin Sodium/Sodium Chloride 250 mls @ 2.5 mls/hr 05/28/20 14:00 05/28/20 1 4:19 25,000 unit/ Sodium Chloride IV 0 mls .Q24H MELVINA Administration Lisinopril 10 mg 05/28/20 09:00 05/28/20 08:38 Lisinopril 10 Mg Tab PO 10 mg DAILY MELVINA Administration Lorazepam 1 mg 05/28/20 13:49 Lorazepam 2 Mg/Ml Inj IV Q4HR PRN Anxiety Nitroglycerin 0.4 mg 05/28/20 07:30 Nitroglycerin Sl Tabs 0.4 Mg Tab SUBLINGUAL Q5M PRN Chest Pain Ondansetron HCl 4 mg 05/28/20 13:49 Ondansetron 4 Mg/2 Ml Vial IVP Q4HR PRN Nausea And Vomiting Intake and Output 05/28/20 05/29/20 05/29/20 22:59 06:59 14:59 Intake Total 4856.477 0934 360 Output Total 350 500 300 Balance 7758.799 8018 60 Intake: IV 680 1280 360 0.9 NS 120 160 80 0.9 drug port 35mL/hrx2 560 140 Sodium Chloride 0.9% 1, 280 280 70 000 ml @ 35 mls/hr IV . Q24H [facility] Rx#:[id number] Sodium Chloride 0.9% 1, 280 280 70 000 ml @ 35 mls/hr IV . Q24H [facility] Rx#:[id number] Intake, IV Titration 178.321 Amount Heparin Sod,Pork in 0.45% 178.321 NaCl 25,000 unit In 0.45 % NaCl 1 250ml.bag @ 18 UNITS/KG/HR 14.778 mls/hr IV .[id number] [facility] Rx#: [id number] Oral 720 240 Output: Urine 350 500 300 Other: Voiding Method Urinal Urinal # Voids 0 Weight 85.2 kg 05/29/20 02:48 05/29/20 02:48 Assessment and Plan Assessment: #1 saddle pulmonary emboli with evidence of pulmonary infarct and right heart strain, status post EKOS #2 pulmonary hypertension #3 aneurysmal dilation of the aortic root 4.1 cm in diameter #4 possible bicuspid aortic valve with evidence of mild AI #5 acute kidney injury #6 elevated troponin level likely secondary to type II event due to oxygen supply demand mismatch and right heart strain #7 hypertension Plan: From cardiology's perspective patient will be discharged home today. He'll follow-up in the office likely , 06/03/2020 for echocardiogram and follow-up office visit with Dr. Navarro. Patient will require further evaluation down the road to monitor aortic root as well as possible bicuspid aortic valve. Patient will likely require outpatient cardiac stress testing at a later date to rule out underlying cardiac ischemia. 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 Patient was seen and examined.
[2020-05-29 12:37] VITALS: TEMP 97.4
[2020-05-29 14:16] VITALS: RESP 20
[2020-05-29] MEDS ORDERED: APIXABAN 5 MG TAB PO ONE (15:05)
[2020-05-29 15:50] VITALS: BP 115/72; PULSE 82
--- NOTE | 2020-06-05 22:10 | P.DS ---
Providers Date of admission: 05/28/20 07:32 Expected date of discharge: 05/29/20 Attending physician: John He Consults: 05/28/20 07:15 Consult Physician Urgent Consulting Provider: Nick Galvan Consult Reason/Comments: Pulmonary embolism Do you want consulting provider notified?: Already Contacted 05/29/20 09:37 Consult Physician Stat Consulting Provider: Fariba Navarro Consult Reason/Comments: right heart strain Do you want consulting provider notified?: Already Contacted Primary care physician: Mikey Sorensen Hospital Course: Discharge diagnosis Shortness of breath secondary to saddle pulmonary embolus with extensive bilateral pulmonary emboli with right heart strain. 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 Hypertension Lactic acidosis 2.3 Acute kidney injury with creatinine 1.4 Elevated D-dimer level Elevated troponin level secondary to demand mismatch and right heart strain Elevated BNP level. Hospital course Patient is a 70-year-old male with a known history of hypertension presents to ER with complaints of shortness of breath. Patient has been having worsening on and off shortness of breath for the past 1 week. Patient was seen by his primary care physician and was started levofloxacin for possible pneumonia. Patient is still having shortness of breath and decided to come to ER. Currently patient denies cough or sputum complaints of chest pain. Patient states that he is also having lower leg pain which he thought was due to muscle spasms. No complaints of fever or chills. Denies any cough or sputum production. No headache or dizziness or lightheadedness. Chest x-ray showed mild infiltration or atelectasis in the left lung base. Patient did have elevated D-dimer level 22.31 and WBC count 14.5 and lactic acid 2.3, BUN 34 and creatinine 1.4 proBNP 44083. Coronavirus PCR not detected Troponin 0 0.861, 0.[address] angiogram of the chest was done which showed saddle pulmonary embolus with extensive bilateral pulmonary emboli. Heart is at upper limits of normal with evidence of right heart strain. Pericardial effusion up to 3 mm in thickness Findings suggestive of developing pulmonary infarct involving the right lower lobe. 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 Patient was seen by vascular surgery and is planning for thrombolysis today. 05/29/2020 Patient is status post EKOS. Currently resting in the bed comfortably. Able to ambulate in the hallway without shortness of breath. Did improve symptomatically. No other acute overnight issues. Patient did have small amount of blood-tinged sputum this morning. Otherwise no active symptoms. Tolerating oral diet. EKOS catheter was removed. Patient was started on oral anticoagulation in the form of Eliquis. Heparin will be discontinued. Prescription for Eliquis starter Pack was sent to pharmacy. Patient is cleared from vascular surgery standpoint. Follow with Dr. Connolly in next 2 weeks. Patient is eager to be discharged home.Currently saturating at 92% on room air. PHYSICAL EXAMINATION: Patient is lying in the bed comfortably, no acute distress, awake alert and oriented.. HEENT: Normocephalic. Neck is supple. Pupils reactive. Nostrils clear. Oral cavity is moist. Ears reveal no drainage. Neck reveals no JVD, carotid bruits, or thyromegaly. CHEST EXAMINATION: Trachea is central. Symmetrical expansion. Lung mcdowell clear to auscultation and percussion. CARDIAC: Normal S1, S2 with no gallops. No murmurs ABDOMEN: Soft. Bowel sounds normal. No organomegaly. No abdominal bruits. Extremities: reveal no edema. No clubbing or cyanosis Neurologically awake, alert, oriented x3 with well-coordinated movements. No focal deficits noted Skin: No rash or skin lesions. Psychiatric: Coperative. Nonsuicidal Musculoskeletal: No joint swelling or deformity. Normal range of motion. Vital Signs Temp 97.5 F L 05/29/20 08:00 Pulse 69 05/29/20 08:00 Resp 14 05/29/20 08:00 BP 129/83 05/29/20 08:00 Pulse Ox 93 L 05/29/20 08:00 Intake & Output 05/28/20 05/29/20 05/29/20 18:59 06:59 18:59 Intake Total 800 2298.321 160 Output Total 850 300 Balance 800 1448.321 -140 Weight 82.1 kg 85.2 kg Intake: IV 320 1640 160 0.9 NS 40 240 20 0.9 drug port 35mL/hrx2 560 70 Sodium Chloride 0.9% 1, 140 420 35 000 ml @ 35 mls/hr IV . Q24H [facility] Rx#:[id number] Sodium Chloride 0.9% 1, 140 420 35 000 ml @ 35 mls/hr IV . Q24H [facility] Rx#:[id number] Intake, IV Titration 178.321 Amount Heparin Sod,Pork in 0.45% 178.321 NaCl 25,000 unit In 0.45 % NaCl 1 250ml.bag @ 18 UNITS/KG/HR 14.778 mls/hr IV .[id number] [facility] Rx#: [id number] Oral 480 480 Output: Urine 850 300 Other: Voiding Method Urinal - Labs CBC & Chem 7: 05/29/20 02:48 05/29/20 02:48 Labs: Abnormal Lab Results - Last 24 Hours (Table) 05/28/20 05/28/20 05/28/20 Range/Units 07:47 10:41 14:10 WBC (3.8-10.6) k/uL APTT 42.0 H (22.0-30.0) sec Fibrinogen (200-500) mg/dL Sodium (137-145) mmol/L Chloride (98-107) mmol/L BUN (9-20) mg/dL Glucose (74-99) mg/dL POC Glucose (mg/dL) (75-99) mg/dL Calcium (8.4-10.2) mg/dL Troponin I 0.729 H* 0.553 H* (0.000-0.034) ng/mL Ur Specific [place] (1.001-1.035) Urine Protein (Negative) Urine Mucus (None) /hpf 05/28/20 05/28/20 05/28/20 Range/Units 14:10 14:36 19:53 WBC (3.8-10.6) k/uL APTT (22.0-30.0) sec Fibrinogen 598 H 578 H (200-500) mg/dL Sodium (137-145) mmol/L Chloride (98-107) mmol/L BUN (9-20) mg/dL Glucose (74-99) mg/dL POC Glucose (mg/dL) 120 H (75-99) mg/dL Calcium (8.4-10.2) mg/dL Troponin I (0.000-0.034) ng/mL Ur Specific [place] (1.001-1.035) Urine Protein (Negative) Urine Mucus (None) /hpf 05/28/20 05/29/20 05/29/20 Range/Units 19:53 01:18 02:48 WBC 11.6 H (3.8-10.6) k/uL APTT (22.0-30.0) sec Fibrinogen (200-500) mg/dL Sodium 135 L (137-145) mmol/L Chloride 109 H (98-107) mmol/L BUN 25 H (9-20) mg/dL Glucose 131 H (74-99) mg/dL POC Glucose (mg/dL) (75-99) mg/dL Calcium 7.7 L (8.4-10.2) mg/dL Troponin I (0.000-0.034) ng/mL Ur Specific [place] [facility] 1.050 H (1.001-1.035) Urine Protein 1+ H (Negative) Urine Mucus Rare H (None) /hpf Time taken greater than 35 minutes in patient care out of which more than 50% was spent on counseling and coordination of care. Patient Condition at Discharge: Good Plan - Discharge Summary New Discharge Prescriptions: New Apixaban [Eliquis] 5 mg PO BID #30 tab Apixaban [Eliquis Starter Pack (for VTE)] 0 mg PO DIRECTED 30 Days #1 pack Aspirin 81 mg PO DAILY #30 chewable Continue lisinopriL [Zestril] 10 mg PO DAILY Discontinued Levofloxacin [Levaquin] 500 mg PO DAILY Discharge Medication List lisinopriL [Zestril] 10 mg PO DAILY 05/28/20 [History] Apixaban [Eliquis Starter Pack (for VTE)] 0 mg PO DIRECTED 30 Days #1 pack 05/29/20 [Rx] Apixaban [Eliquis] 5 mg PO BID #30 tab 05/29/20 [Rx] Aspirin 81 mg PO DAILY #30 chewable 05/29/20 [Rx] Follow up Appointment(s)/Referral(s): Edu Jensen MD [Primary Care Provider] - 1-2 days Nick Galvan DO [Doctor of Osteopathic Medicine] - 2 Weeks (Office isn't open on sunday, patient to make own appointment) Fariba Navarro MD [STAFF PHYSICIAN] - 1 Week (Echo and OV Per the office they will call the patient on sunday to schedule his appointment. ) Patient Instructions/Handouts: Pulmonary Embolism (DC), Deep Vein Thrombosis (DC), Deep Vein Thrombosis (GEN) Discharge Disposition: HOME SELF-CARE
== END 2020-05-29 16:00 | disposition home or self-care (01) | DRG 176 ==
LOC: EC 04:28 → 3SCARD 07:32 → 2SICU 11:20
PROVIDERS: ADMIT Hospitalist; ATTEND Hospitalist
DX: I26.92 Saddle embolus of pulmonary artery without acute cor pulmonale (principal); N17.9 Acute kidney failure, unspecified; E87.2 Acidosis; I31.3 Pericardial effusion (noninflammatory); I82.411 Acute embolism and thrombosis of right femoral vein; J98.11 Atelectasis; I10 Essential (primary) hypertension; I27.20 Pulmonary hypertension, unspecified; Z88.8 Allergy status to other drugs, medicaments and biological substances; Z91.040 Latex allergy status; Z79.899 Other long term (current) drug therapy; Z20.822 Contact with and (suspected) exposure to COVID-19; Z79.01 Long term (current) use of anticoagulants; Z79.82 Long term (current) use of aspirin
CPT/HCPCS: 36415; 37211; 71046; 71275; 76937; 80048; 80053; 81001; 83605; 83735; 83880; 84484; 85025; 85027; 85379; 85384; 85610; 85730; 87635; 93005; 93306; 93970; 99291